=== PATIENT | male | born 1985 | race Caucasian/White ===

== ENCOUNTER 2017-10-24 20:17 | Emergency (ER) | payer OTHER ==
--- NOTE | 2017-10-24 20:31 | UC ---
Upper Extremity HPI - HPI Summary HPI Summary: 31 year old male presents with complains of left thumb abscess. - History of Current Complaint Stated Complaint: LEFT THUMB INJ Time Seen by Provider: 10/24/17 20:29 Hx Obtained From: Patient Onset/Duration: Sudden Onset Severity Initially: Moderate Severity Currently: Moderate Pain Scale Used: 0-10 Numeric - 2 - Allergies/Home Medications Allergies/Adverse Reactions: Allergies Allergy/AdvReac Type Severity Reaction Status Date / Time No Known Allergies Allergy Verified 10/24/17 20:40 Home Medications: Home Medications Fluticasone-Salmeterol 250-50* [Advair Diskus 250-50*] 1 puff INH BID 10/24/17 [ History Confirmed 10/24/17] PMH/Surg Hx/FS Hx/Imm Hx Previously Healthy: Yes - Surgical History Surgical History: None - Family History Known Family History: Positive: None - Social History Alcohol Use: Occasionally Substance Use Type: None Smoking Status (MU): Never Smoked Tobacco Review of Systems Constitutional: Negative Skin: Other - left thumb abscess Eyes: Negative ENT: Negative Respiratory: Negative Cardiovascular: Negative Gastrointestinal: Negative Genitourinary: Negative Motor: Negative Neurovascular: Negative Musculoskeletal: Negative Neurological: Negative Psychological: Negative All Other Systems Reviewed And Are Negative: Yes Physical Exam Triage Information Reviewed: Yes Eye Exam: Normal ENT Exam: Normal Dental Exam: Normal Neck exam: Normal Neck: Positive: 1 Respiratory Exam: Normal Cardiovascular Exam: Normal Abdominal Exam: Normal Musculoskeletal Exam: Normal Neurological Exam: Normal Psychological Exam: Normal Skin: Positive: Other - left thumb abscess Upper Extremity Course/Dx - Differential Dx/Diagnosis Provider Diagnoses: left thumb abscess Discharge - Discharge Plan Condition: Stable Disposition: HOME Prescriptions: Sulfamethox/Trimethoprim DS* [Bactrim DS 800/160 TAB*] 1 tab PO BID #14 tab Patient Education Materials: MRSA (Methicillin-Resistant Staphylococcus Aureus ) (ED) Referrals: No Primary Care Phys,NOPCP [Primary Care Provider] -
[2017-10-24] MEDS ORDERED: Sulfamethox/Trimethoprim DS 800/160* TAB PO ONE ×2 (20:41→20:58)
[2017-10-24 20:47] VITALS: BP 132/76
--- NOTE | 2017-10-28 07:04 | UC ---
- Progress Note Progress Note: no change
== END 2017-10-24 21:12 | disposition home or self-care (01) ==
LOC: UCCORT 20:17
DX: L02.512 Cutaneous abscess of left hand (principal)
CPT/HCPCS: 87070; 87077; 87186; 87205; 99213; A9270-GY; G0463